=== PATIENT | female | born 1995 | race Two or more races ===

== ENCOUNTER 2020-03-05 15:39 | Emergency (ER) | payer BC, OTHER ==
[~2020-03-05] VITALS: Ht 157.5 cm; Wt 49.2 kg
[2020-03-05 17:05] VITALS: BP 108/68
--- NOTE | 2020-03-05 17:32 | NUR ---
Patient given discharge instructions and they have confirmed that they understand the instructions. Patient ambulatory with steady gait.
== END 2020-03-05 17:33 | disposition home or self-care (01) ==
LOC: ED 16:50
DX: N63.20 Unspecified lump in the left breast, unspecified quadrant (principal); R07.89 Other chest pain
CPT/HCPCS: 76642; 99284

== ENCOUNTER → 2020-04-18 | Outpatient (CLI) | payer BC | END | disposition home or self-care (01) | LOC: CFH 08:33 | PROVIDERS: ATTEND Physician Assistant | DX: N63.22 Unspecified lump in the left breast, upper inner quadrant (principal) | CPT/HCPCS: 76642 ==